=== PATIENT | male | born 1980 | race Caucasian/White ===

== ENCOUNTER → 2021-07-19 | Outpatient (CLI) | payer OTHER ==
[~2021-07-19] MED LIST: KEFLEX500 MG PO; NOHOMEMEDICATIONS
== END ==
LOC: CAT 10:34
PROVIDERS: ATTEND Family Medicine
DX: Z13.6 Encounter for screening for cardiovascular disorders (principal)

== ENCOUNTER → 2021-10-13 | Outpatient (CLI) | payer OTHER | LOC: RAD 15:36 | PROVIDERS: ATTEND Family Medicine | DX: M51.37 Other intervertebral disc degeneration, lumbosacral region (principal); M54.42 Lumbago with sciatica, left side; M54.41 Lumbago with sciatica, right side ==